=== PATIENT | male | born 1975 | race Caucasian/White ===

== ENCOUNTER 2018-05-24 08:52 | Emergency (ER) | payer OTHER ==
--- NOTE | 2018-05-24 09:34 | EDPHY ---
H & P Time Seen by Provider: 05/24/18 09:14 HPI/ROS: CHIEF COMPLAINT: Left ankle pain since last night HISTORY OF PRESENT ILLNESS: 42-year-old male here with left ankle pain after jumping on a trampoline yesterday evening. He felt a popping sensation when he landed while jumping on the trampoline is been able to bear weight since. States he felt like his ankle was dislocated knee pulled on it went back into place. Has no prior injury to the ankle. Takes no blood thinners. He denies any other associated injuries including no back pain or head injury. He has tried Motrin for pain with minimal relief of pain. ROS As detailed in HPI Smoking Status: Never smoked Physical Exam: General: Alert and oriented. Nontoxic appearing. No acute distress HEENT: Pupils PERRLA. No oral lesions. Cardiopulmonary: Regular rate and rhythm. No lower extremity edema Skin: [place] warm and dry. No lesions. Muscle skeletal: Moving all 4 extremities. Equal strength in upper extremities and lower extremities. Tenderness to the medial and lateral malleolus with significant ecchymosis. Neurovascular intact distal to the ankle was strong pedal pulses in the left foot. Constitutional: Initial Vital Signs Temperature (C) 36.7 C 05/24/18 09:01 Heart Rate 72 05/24/18 09:01 Respiratory Rate 16 05/24/18 09:01 Blood Pressure 149/100 H 05/24/18 09:01 O2 Sat (%) 97 05/24/18 09:01 O2 Delivery Mode Room Air Allergies/Adverse Reactions: No Known Allergies Allergy (Unverified 05/24/18 09:01) Home Medications: Medication Instructions Recorded Lipitor 05/24/18 Losartan Potassium 05/24/18 Medical Decision Making - Diagnostics Imaging Results: Imaging Impressions Ankle X-Ray 05/24/18 09:04 Impression: Talar neck fractures. Procedures: Three way spent place to the left ankle. Cap refill less than 3 sec and sensation intact distal to the splint. ED Course/Re-evaluation: 42-year-old male here with talar neck fracture after jumping on the trampoline yesterday evening. He is neurovascular intact. He is placed in the splint and made nonweightbearing and given crutches for ambulation. He was given orthopedic follow-up. We discussed indications for return such as worsening pain, numbness. No evidence of neurovascular injury or compartment syndrome on exam. Departure - Departure Disposition: Home, Routine, Self-Care Clinical Impression: Fracture of neck of talus Condition: Good Instructions: Ankle Fracture (ED) Additional Instructions: Call Orthopedics Saturday morning for an appointment early next week. You're nonweightbearing on the affected foot. Use crutches for ambulation. Elevate the foot as often as possible. We did call Orthopedics on Saturday request to be seen by their foot and ankle doctor. Referrals: Keyon Landry DO [Primary Care Provider] - As per Instructions Titus Mendoza MD [Medical Doctor] - As per Instructions
[2018-05-24 10:09] VITALS: BP 127/97
== END 2018-05-24 10:16 | disposition home or self-care (01) ==
PROC: 2W3RX1Z Immobilization of Left Lower Leg using Splint (ICD-10-PCS; principal; 2018-05-24)
DX: S92.112A Displaced fracture of neck of left talus, initial encounter for closed fracture (principal); X50.0XXA Overexertion from strenuous movement or load, initial encounter; Y93.44 Activity, trampolining; Y99.8 Other external cause status